=== PATIENT | female | born 1960 | race Caucasian/White ===

== ENCOUNTER 2018-12-01 17:38 | Emergency (ER) | payer OTHER ==
[~2018-12-01] VITALS: Ht 172.7 cm; Wt 77.1 kg
[2018-12-01 17:52] VITALS: BP_SYST 133
--- NOTE | 2018-12-01 17:52 | NUR ---
Patient to ER bed 3 to gown for evaluation. Side rails up. Report given to Cristina RODRIGUEZ.
--- NOTE | 2018-12-01 18:04 | NUR ---
ER Dr. Beatty at bedside examining patient.
--- NOTE | 2018-12-01 18:09 | NUR ---
Patient presented to the ER with left flank pain /. Patient A&O x4, afebrile, respirations equal bilat, pt denies N/V/D at this time. Patient staes she has hx of tremors, tremors are noted. Pt states pain started an hour ago tonight. Patient ambulatory to Er, arrived with .
[2018-12-01] MEDS ORDERED: KETOROLAC TROMETHAMINE 60 MG/2 ML VIAL IM ONE (18:15)
[2018-12-01 18:37] LABS: HEMATOCRIT 42.9 % (36-48); HEMOGLOBIN 14.6 g/dL (12.0-16.0); MEAN CORPUSCULAR HEMOGLOBIN 31 pg (27-31); MEAN CORPUSCULAR HGB CONC 34 % (32-36); MEAN CORPUSCULAR VOLUME 90 fL (79.0-98.0); RED BLOOD CELL COUNT(AUTO) 4.78 MIL/uL (4.2-6.2)
[2018-12-01 18:38] LABS: BASOPHILS % (AUTO) 0.5 % (0.0-2.0); EOSINOPHILS # (AUTO) 0.1 K/uL (0.0-0.4); EOSINOPHILS % (AUTO) 1.5 % (0.0-4.0); LYMPHOCYTES # (AUTO) 1.8 K/uL (1.0-5.5); LYMPHOCYTES % (AUTO) 25.9 % (20.5-51.5); MONOCYTES # (AUTO) 0.4 K/uL (0.0-1.0); NEUTROPHILS # (AUTO) 4.6 K/uL (1.8-7.7); NEUTROPHILS % (AUTO) 66.1 % (40.0-70.0); PLATELET COUNT (AUTO) 253 K/uL (130-430); RED CELL DISTRIBUTION WIDTH 13.1 % (9.0-15.0)
[2018-12-01 18:40] LABS: CALCIUM 9.2 mg/dL (8.4-11.0); CREATININE 1.13 mg/dL (0.55-1.30); POTASSIUM 3.6 mmol/L (3.5-5.1)
[2018-12-01 18:45] LABS: PROTHROMBIN TIME 9.9 SECS (9.5-12.5)
--- NOTE | 2018-12-01 18:45 | NUR ---
Pt to CT with radiology staff.
[2018-12-01 18:46] LABS: ALBUMIN 3.9 g/dL (3.4-4.8); TOTAL BILIRUBIN 0.4 mg/dL (0.0-1.0)
--- NOTE | 2018-12-01 18:56 | NUR ---
Pt back to ER bed [address]
--- NOTE | 2018-12-01 19:14 | NUR ---
Report given to Kamryn RODRIGUEZ
[2018-12-01] MEDS ORDERED: HYDROcodone/ACETAMIN 10-325 MG TAB PO ONE (19:30)
[2018-12-01] MEDS ORDERED: ONDANSETRON 4 MG ODT TAB PO ONE (19:30)
--- NOTE | 2018-12-01 19:30 | NUR ---
Pt states, " I do not want the norco or zofran." DELFINO BONILLA made aware.
[2018-12-01 19:58] VITALS: BP_SYST 133
--- NOTE | 2018-12-01 19:58 | NUR ---
Patient given written and verbal discharge instructions and verbalizes understanding. ER MD Dr. Beatty discussed with patient the results and treatment provided. Patient in stable condition. ID arm band removed. Rx of norco and motrin given. Patient educated on pain management and to follow up with PMD within 2-3 days. Pain Scale 3/10, however pt was given RX of pain medication and would like to go home. Opportunity for questions provided and answered. Medication side effect fact sheet provided.
== END 2018-12-01 19:58 | disposition home or self-care (01) ==
LOC: SED 17:38
DX: M54.9 Dorsalgia, unspecified (principal); F41.9 Anxiety disorder, unspecified; Z85.3 Personal history of malignant neoplasm of breast; Z88.5 Allergy status to narcotic agent
CPT/HCPCS: 36415; 74176; 80053; 81002; 81025; 82150; 83690; 84703; 85025; 85610; 85730; 96372; 99284; J1885; Q0162